=== PATIENT | male | born 2005 | race Caucasian/White ===

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

== ENCOUNTER → 2024-02-22 14:24 | Outpatient (CLI) | payer OTHER, SELFPAY ==
[2024-02-22 15:47] LABS: Influenza A - CEPHEID Flu A NEGATIVE (NEGATIVE); Influenza B - CEPHEID Flu B NEGATIVE (NEGATIVE); Respiratory Syncytial Virus Negative (Negative)
[2024-02-22 15:59] LABS: COVID-19 CEPHEID 4-PLEX PCR Negative (Negative)
== END ==
LOC: LAB 14:35
PROVIDERS: Family Provider Family Medicine; PCP Family Medicine; Visit Provider Physician Assistant Medical
DX: R05.1 Acute cough (principal)
CPT/HCPCS: 0241U

== ENCOUNTER → 2024-07-30 17:25 | Outpatient (CLI) | payer OTHER, SELFPAY ==
--- NOTE | 2024-07-30 | DI.RAD.S_ITS ---
PROCEDURE: XR CHEST 2V INDICATIONS: ACUTE COUGH TECHNIQUE: 2 views of the chest were acquired. COMPARISON: None. FINDINGS: Surgical changes and devices: None. Lungs and pleura: Lungs are clear. No pleural effusions or pneumothorax. Mediastinum: Mediastinal contours are normal. Heart size is normal. Bones and chest wall: No suspicious bony abnormalities. Soft tissues appear unremarkable. IMPRESSION: No acute cardiopulmonary pathology. Dictated by: Abimael Barber M.D. on 07/30/2024 at 18:07 Approved by: Abimael Barber M.D. on 07/30/2024 at 18:07
== END ==
LOC: DI 17:26
PROVIDERS: Family Provider Family Medicine; PCP Family Medicine; Referring Provider Family Medicine; Visit Provider Family Medicine
DX: J01.01 Acute recurrent maxillary sinusitis (principal); R05.1 Acute cough
CPT/HCPCS: 71046